=== PATIENT | male | born 1995 | race Caucasian/White ===

== ENCOUNTER 2021-10-15 17:40 | Inpatient (IN) | payer OTHER ==
[~2021-10-15] VITALS: Ht 170.2 cm; Wt 105.7 kg
--- NOTE | 2021-10-15 17:40 | NUR ---
Dr Olguin at the bedside for MSE.
[2021-10-15 18:13] LABS: HEMATOCRIT 52.6 % (36.7-47.1); MEAN CORPUSCULAR HEMOGLOBIN 27.9 uug (23.8-33.4); MEAN CORPUSCULAR VOLUME 85.5 fL (73.0-96.2); PLATELET COUNT (AUTO) 468 K/uL (152-348)
[2021-10-15 18:21] LABS: CARBON DIOXIDE 19 mmol/L (21-32); CHLORIDE 101 mmol/L (98-107); CREATININE 4.4 mg/dL (0.6-1.3); GLUCOSE 194 mg/dL (74-106); UREA NITROGEN, BLOOD 26 mg/dL (7-18)
[2021-10-15 18:23] LABS: ETHANOL < 3 MG/DL (0-0); POTASSIUM 8.3 mmol/L (3.5-5.1)
[2021-10-15] MEDS ORDERED: DEXTROSE 50% 50 ML DISP.SYRIN IV ONE (18:30)
[2021-10-15] MEDS ORDERED: SODIUM POLYSTYRENE SULFONATE 15 G/60 ML LIQUID UDC PO ONE (18:30)
[2021-10-15] MEDS ORDERED: IV NS 1000 ML 1,000 ML IV ONE (18:30)
[2021-10-15] MEDS ORDERED: SODIUM BICARBONATE 8.4% 50 MEQ/50 ML DISP.SYRIN IV ONE ×2 (18:30→18:39)
[2021-10-15] MEDS ORDERED: IV NORMAL SALINE 1000 ML BAG IV ONE (18:30)
[2021-10-15] MEDS ORDERED: CALCIUM CHLORIDE 1 GM/10 ML DISP.SYRIN IVP ONE ×2 (18:30→18:36)
[2021-10-15] MEDS ORDERED: SODIUM BICARBONATE 8.4% 100 MEQ in IV D5W 1000ML 1,000 ML IV ONE (18:30)
[2021-10-15 18:32] LABS: ACETAMINOPHEN < 2.0 ug/mL (10-30); ALANINE AMINOTRANSFERASE 188 U/L (16-63); ALKALINE PHOSPHATASE 117 U/L (50-136); ASPARTATE AMINOTRANSFERASE 1321 U/L (15-37); BILIRUBIN,DIRECT 0.2 mg/dL (0.0-0.2); BILIRUBIN,TOTAL 0.6 mg/dL (0.2-1.0); TOTAL PROTEIN, SERUM 8.3 g/dL (6.4-8.2)
[2021-10-15] MEDS ORDERED: SWABABLE VALVE TRANSFER SET EA MC ONE (18:38)
[2021-10-15] MEDS ORDERED: IV NORMAL SALINE 250 ML IV ONE (18:38)
[2021-10-15] MEDS ORDERED: IOHEXOL 300MG/ML 100 ML INFUS..BTL ONE (18:38)
[2021-10-15] MEDS ORDERED: SODIUM POLYSTYRENE SULFONATE 15 G/60 ML LIQUID UDC ONE (18:39)
[2021-10-15] MEDS ORDERED: DEXTROSE 50% 50 ML DISP.SYRIN ONE (18:39)
[2021-10-15] MEDS ORDERED: INSULIN REGULAR, HUMAN 300 UNIT/3 ML VIAL IV ONE (18:45)
[2021-10-15] MEDS ORDERED: PIPERACILLIN SODIUM/TAZOBACTAM 3.375 G in IV DEXTROSE 5% 50 ML IV ONE (18:45)
--- NOTE | 2021-10-15 18:46 | NUR ---
Pt out Of ER for Ct scan.
[2021-10-15] MEDS ORDERED: INSULIN REGULAR, HUMAN 300 UNIT/3 ML VIAL ONE (18:49)
[2021-10-15] MEDS ORDERED: PIPERACILLIN/TAZOBACTAM/D5W 50 ML IV ONE (18:57)
--- NOTE | 2021-10-15 19:08 | NUR ---
RECEIVED REPORT FROM RAYMON. PT NOTED TO BE IN BED, NO SOB OR LABORED BREATHING. AFEBRILE. A/O X4. BED IN LOWEST POSITION FOR SAFETY PRECAUTIONS. MOTHER AT BEDSIDE.
--- NOTE | 2021-10-15 20:37 | NUR ---
ASISSTED PT TO RESTROOM WITH 2 PERSON ASISST, WELL TOLERATED. ABLE TO HAVE BM.
[2021-10-15] MEDS ORDERED: ONDANSETRON 4 MG/2 ML VIAL IV PRN (22:00)
[2021-10-15] MEDS ORDERED: ACETAMINOPHEN 650 MG SUPP.RECT RC PRN (22:00)
[2021-10-15] MEDS ORDERED: HEPARIN/D5W DRIP 500 ML IV PRN (22:00)
[2021-10-15 22:05] LABS: CREATINE KINASE, TOTAL 17545 U/L (39-308)
[2021-10-15 22:32] LABS: *BILIRUBIN,URIN 1+ (NEGATIVE); *BLOOD, URINE 3+ (NEGATIVE); *CLARITY,URINE CLOUDY (CLEAR); *COLOR,URINE Brown (YELLOW); *KETONES,URINE TRACE (NEGATIVE); *UROBILINOGEN,URINE 0.2 E.U./dl (NORMAL); LEUKOCYTE ESTERASE ,URINE NEGATIVE (NEGATIVE); NITRITE, URINE NEGATIVE (NEGATIVE); PH,URINE 5.5 (5.0-8.0); UGLUCOSE TRACE (NEGATIVE)
[2021-10-15 22:40] LABS: BACTERIA,URINE NONE SEEN /HPF (NONE SEEN); RBC,URINE 20-50 /HPF (0-3); SQUAMOUS EPITHELIAL CELL,UR NONE SEEN /HPF (NONE SEEN); WBC,URINE 0-3 /HPF (0-3)
[2021-10-15] MEDS ORDERED: APIX2.5T PO (22:48)
[2021-10-15] MEDS ORDERED: ATOR20TA PO (22:48)
[2021-10-15] MEDS ORDERED: ENAL20TA18 PO (22:48)
[2021-10-15] MEDS ORDERED: VERA240C2 PO (22:48)
[2021-10-15 22:53] LABS: *AMPHETAMINE, URINE NEGATIVE (NEGATIVE); *CANNABINOID, URINE NEGATIVE (NEGATIVE); *COCCAINE, URINE NEGATIVE (NEGATIVE); *OPIATE, URINE POSITIVE (NEGATIVE); *PHENCYCLIDINE SCREEN,URINE NEGATIVE (NEGATIVE)
[2021-10-15 23:16] LABS: ABG BASE EXCESS -9.3 mmol/L; ABG HCO3 17.3 mmol/L; ABG PCO2 39.8 mmHg (35.0-45.0); ABG PH 7.255 (7.350-7.450); ABG SITE RIGHT RADIAL; ABG TOTAL HEMOGLOBIN 17.6 G/dL (13.5-18.0); COHb 0.4 % (0.5-1.5); MetHb 0.6 % (0.0-1.5); O2Hb 94.4 % (94.0-97.0); VENT MODE Nasal Cannula
--- NOTE | 2021-10-15 23:25 | NUR ---
PT RESTING COMFORTABLY IN BED, NO SOB OR LABORED BREATHING EYES CLOSED.
[2021-10-16] LABS: LIPASE 216 U/L (73-393)
--- NOTE | 2021-10-16 02:00 | NUR ---
PT RESTING IN BED, NOTED TO BE USING HIS CELL PHONE. NO SOB OR LABORED BREATHING.
[2021-10-16] MEDS ORDERED: VANCOMYCIN IV 2,000 MG in IV DEXTROSE 5% 500 ML IV ONE (02:30)
[2021-10-16] MEDS ORDERED: VANCOMYCIN 1000 MG VIAL ONE (03:29)
[2021-10-16] MEDS ORDERED: HEPARIN/D5W DRIP 500 ML ONE (03:53)
[2021-10-16] MEDS ORDERED: PIPERACILLIN/TAZO 2.25 G in IV DEXTROSE 5% 50 ML IV SCH ×2 (04:00→12:00)
[2021-10-16] MEDS ORDERED: PIPERACILLIN/TAZOBACTAM/D5W 50 ML ONE (04:27)
--- NOTE | 2021-10-16 05:42 | NUR ---
Patient is resting comfortably in bed with eyes closed.
[2021-10-16] MEDS: MORPHINE SULFATE 2 MG/1 ML DISP.SYRIN IV PRN ×3 (06:45→22:16)
[2021-10-16 06:46] LABS: MEAN CORPUSCULAR HEMOGLOBIN 27.8 uug (23.8-33.4); MEAN CORPUSCULAR VOLUME 83.9 fL (73.0-96.2); PLATELET COUNT (AUTO) 348 K/uL (152-348)
[2021-10-16] MEDS ORDERED: MORPHINE SULFATE 2 MG/1 ML DISP.SYRIN ONE ×2 (06:50→09:19)
--- NOTE | 2021-10-16 06:55 | NUR ---
GAVE REPORT TO MEHRDAD WOOD. PT NOTED TO BE IN BED, NO SOB OR LABORED BREATHING. AFEBRILE.
[2021-10-16 07:50] LABS: CREATININE 4.4 mg/dL (0.6-1.3); PHOSPHOROUS 6.3 mg/dL (2.5-4.9); POTASSIUM 5.3 mmol/L (3.5-5.1); TOTAL PROTEIN, SERUM 7.2 g/dL (6.4-8.2)
[2021-10-16] MEDS ORDERED: IV NORMAL SALINE 1000 ML BAG IV ONE (08:00)
--- NOTE | 2021-10-16 08:23 | NUR ---
PT IS RESTING IN BED COMFORTABLY . DR METCALF EVALUATED THE PT. HEPARIN INFUSION WAS STOPPED ACCORDING TO DR METCALF ORDER. DR BAUGH WAS NOTIFIED. PT CAN BE ADMITTED TO [facility] UNIT ACCORDING TO DR BAUGH ORDER.
[2021-10-16] MEDS: PANTOPRAZOLE SODIUM 40 MG VIAL IV SCH (09:08)
[2021-10-16] MEDS ORDERED: PANTOPRAZOLE SODIUM 40 MG VIAL ONE (09:18)
[2021-10-16] MEDS: LORAZEPAM 2 MG/1 ML VIAL IV PRN (11:07)
[2021-10-16] MEDS ORDERED: LORAZEPAM 2 MG/1 ML VIAL ONE (11:11)
[2021-10-16] MEDS: PIPERACILLIN SODIUM/TAZOBACTAM 3.375 G in IV DEXTROSE 5% 50 ML IV SCH ×2 (12:26→20:35)
[2021-10-16] MEDS ORDERED: PIPERACILLIN/TAZOBACTAM/D5W 50 ML IV ONE (12:42)
--- NOTE | 2021-10-16 14:45 | NUR ---
ADMITTED FROM ER A 25 YO MALE FROM HOME ALONG WITH MOTHER WITH DX OF MULTI-ORGAN FAILURE DROWSY BUT ABLE TO RESPOND TO SIMPLE QUESTIONS AT AW SHORT PERIOD OF TIME AND THEN GOES TO SLEEP. ON 3L O2 VIA NC SATURATING 93%. ROUTINE ADMISSION ASSESSMENTS INITIATED. DR BAUGH PUT ADMISSION ORDERS AND CARRIED. ST 125/MIN ON MOITOR. CLOSELY MONITOR
--- NOTE | 2021-10-16 14:58 | NUR ---
REPORT WAS GIVEN TO RN [facility]. PT WAS TRANSFERED TO ROOM #310.
[2021-10-16 16:07] VITALS: BP 131/66
[2021-10-16] MEDS: IV D5/ 0.9% NACL 1,000 ML IV PRN (16:41)
[2021-10-16 20:17] VITALS: BP 134/78
--- NOTE | 2021-10-16 22:30 | NUR ---
Pt requested to standup under supervision to relieve pressure from bed; assisted and kept safe; Sinus tachy 117 while standing up; pt denies dizziness and nausea; pt placed back safely to bed; morphine given for pain management.
[2021-10-17 00:06] VITALS: BP 132/86
[2021-10-17] MEDS: PIPERACILLIN SODIUM/TAZOBACTAM 3.375 G in IV DEXTROSE 5% 50 ML IV SCH ×3 (03:18→19:43)
[2021-10-17] MEDS: MORPHINE SULFATE 2 MG/1 ML DISP.SYRIN IV PRN ×3 (03:25→22:47)
[2021-10-17 04:37] VITALS: BP 115/73
[2021-10-17] MEDS: LORAZEPAM 2 MG/1 ML VIAL IV PRN ×2 (05:01→19:43)
[2021-10-17] MEDS: IV D5/ 0.9% NACL 1,000 ML IV PRN (05:01)
--- NOTE | 2021-10-17 06:22 | NUR ---
Pt unable to urinate; tried for an hour to use urinal; bladder scan done and showed 750 ml in bladder; in/out catheter done aseptically and was able to have 1000 ml output.; will refer to
[2021-10-17 08:00] VITALS: BP 146/68
[2021-10-17 08:14] LABS: HEMATOCRIT 40.4 % (36.7-47.1); MEAN CORPUSCULAR HEMOGLOBIN 27.3 uug (23.8-33.4); MEAN CORPUSCULAR VOLUME 83.4 fL (73.0-96.2); PLATELET COUNT (AUTO) 236 K/uL (152-348)
[2021-10-17 08:43] LABS: BILIRUBIN,DIRECT 0.4 mg/dL (0.0-0.2); BILIRUBIN,TOTAL 1.1 mg/dL (0.2-1.0); CREATININE 5.2 mg/dL (0.6-1.3); MAGNESIUM 1.9 mg/dL (1.8-2.4); PHOSPHOROUS 5.3 mg/dL (2.5-4.9); POTASSIUM 4.2 mmol/L (3.5-5.1); TOTAL PROTEIN, SERUM 6.1 g/dL (6.4-8.2); VANCOMYCIN,RANDOM 19.2 ug/mL (18.0-26.0)
[2021-10-17] MEDS: PANTOPRAZOLE SODIUM 40 MG VIAL IV SCH (08:50)
[2021-10-17] MEDS: IV 1/2NS 1000 ML 1,000 ML IV PRN ×2 (10:01→22:28)
--- NOTE | 2021-10-17 10:16 | NUR ---
RESTING IN BED WITH EYES CLOSED. ST 103/MIN ON MONITOR. NO SIGNS OF DISCOMFORT. BLAADER SCA DONE , READS 320 MLS. WILL CONTINUE TO OBSERVE
[2021-10-17] MEDS ORDERED: CETI-355 PO (10:39)
[2021-10-17] MEDS ORDERED: HYDR2TAB4 PO (10:39)
[2021-10-17] MEDS ORDERED: IBUP-1957 PO (10:39)
[2021-10-17] MEDS ORDERED: OMEP20TA5 PO (10:39)
[2021-10-17 11:32] VITALS: BP 128/69
--- NOTE | 2021-10-17 13:17 | NUR ---
UP ON THE SIDE OF BED EATING LUNCH, FAIRLY TOLERATED. NO SIGNS OF ASPIRATION OR DIFFICULTY SWALLOWING C/O BEARABLE PAIN RIGHT ARM 4/10 POSITION FOR COMFORT. AWAITING PHYSICAL THERAPY FOR EVAL. ST ON MONITOR 107/MIN CONTINUE WITH [facility] MONITORING
--- NOTE | 2021-10-17 15:00 | NUR ---
PATIENT TRYING TO VOID BUT UNABLE TO GO, BLADDER SCAN DONE [address] BAUGH NOTIFIED WITH ORDER TO INSERT A SÁNCHEZ
--- NOTE | 2021-10-17 15:43 | NUR ---
SÁNCHEZ CATH FR 16 INSERTED WITHOUT DIFFICULTY AND OBTAINED MORE THAN 1000 MLS CLEAR URINE.
[2021-10-17 16:00] VITALS: BP 122/81
--- NOTE | 2021-10-17 18:24 | NUR ---
MIDLINE INSERTED LEFT FOREARM, CONTINUE WITH PAIN MANAGEMENT AND [facility] OBSERVATION. SR ON MONITOR
[2021-10-17 20:25] VITALS: BP 138/69
[2021-10-18] MEDS ORDERED: BENZOCAINE/MENTH/CETYLPYRD LOZENGE MM PRN
[2021-10-18 00:19] VITALS: BP 115/66
[2021-10-18] MEDS: MORPHINE SULFATE 2 MG/1 ML DISP.SYRIN IV PRN ×5 (02:15→14:13)
[2021-10-18 04:26] VITALS: BP 102/63
[2021-10-18] MEDS: PIPERACILLIN SODIUM/TAZOBACTAM 3.375 G in IV DEXTROSE 5% 50 ML IV SCH (04:29)
[2021-10-18] MEDS: PANTOPRAZOLE SODIUM 40 MG TABLET.DR PO SCH (05:42)
[2021-10-18] MEDS: IV 1/2NS 1000 ML 1,000 ML IV PRN ×2 (05:48→14:14)
[2021-10-18 06:06] LABS: HEMATOCRIT 35.7 % (36.7-47.1); MEAN CORPUSCULAR HEMOGLOBIN 26.9 uug (23.8-33.4); MEAN CORPUSCULAR VOLUME 82.3 fL (73.0-96.2); PLATELET COUNT (AUTO) 225 K/uL (152-348)
[2021-10-18 06:31] LABS: CREATININE 5.6 mg/dL (0.6-1.3); PHOSPHOROUS 4.3 mg/dL (2.5-4.9); POTASSIUM 3.9 mmol/L (3.5-5.1); VANCOMYCIN,RANDOM 13.9 ug/mL (18.0-26.0)
--- NOTE | 2021-10-18 07:30 | NUR ---
IN RESTING COMFORTABLY AWAKE ALERT AND VERBALLY RESPONSIVE, C/O BEARABLE PAIN RIGHT ARM, NOTED LESS SWOLLEN WITH GOOD PALPABLE PULSE. AWAITING PT/OT FOR EVAL. CONTINUE WITH PAIN MANAGEMENT. NO SIGNS OF ACUTE DISTRESS. DR BAUGH IN MADE AWARE OF ABNORMAL LABS. WILL CALL FOR NEPHRO CONSULT. SR ON MONITOR AFEBRILE
[2021-10-18] MEDS ORDERED: VANCOMYCIN IV 1,250 MG in IV DEXTROSE 5% 250 ML IV ONE (08:00)
[2021-10-18 08:07] VITALS: BP 117/72
--- NOTE | 2021-10-18 09:20 | NUR ---
PHYSICAL THERAPY INITIATED AT BEDSIDE SEE NOTES
[2021-10-18] MEDS ORDERED: PIPERACILLIN/TAZO 2.25 G in IV DEXTROSE 5% 50 ML IV SCH (12:00)
[2021-10-18 12:10] VITALS: BP 113/79
--- NOTE | 2021-10-18 14:10 | NUR ---
SEEN BY DR COOK FOR KIDNEY FOLLOW-UP KIDNEY US ORDERED. CONTINUE WITH PAIN MANAGEMENT AND IV ANTIBIOTIC
[2021-10-18] MEDS: PIPERACILLIN SODIUM/TAZOBACTAM 3.375 G in IV DEXTROSE 5% 100 ML IV SCH ×2 (14:17→21:07)
[2021-10-18 16:14] VITALS: BP 109/73
--- NOTE | 2021-10-18 18:18 | NUR ---
There is a stat order for ultrasound kidneys at 14:04. The tech was called in at 16:31. Unable to send the images to PAC as the system is failed. IT is informed but still haven't got any reply yet.
--- NOTE | 2021-10-18 19:16 | NUR ---
Received pt sitting up in bed. AO X 4. On room air saturating at 95%. Assisted pt to bedside commode. Right arm swollen, weaker compared to the left side. ROSITA midline intact and patent, running 0.45% NS at 125 mls. F/C intact, draining. No signs of acute distress noted. No complaints at this time. Call lights and belongings within reach. Safety measures initiated.
[2021-10-18 20:12] VITALS: BP 126/80
[2021-10-18] MEDS: LORAZEPAM 2 MG/1 ML VIAL IV PRN (21:25)
[2021-10-19 00:09] VITALS: BP 132/81
[2021-10-19] MEDS: MORPHINE SULFATE 2 MG/1 ML DISP.SYRIN IV PRN ×6 (00:30→21:33)
[2021-10-19 04:12] VITALS: BP 128/82
[2021-10-19] MEDS: IV 1/2NS 1000 ML 1,000 ML IV PRN (05:16)
[2021-10-19] MEDS: PIPERACILLIN SODIUM/TAZOBACTAM 3.375 G in IV DEXTROSE 5% 100 ML IV SCH ×3 (05:18→21:08)
[2021-10-19] MEDS: PANTOPRAZOLE SODIUM 40 MG TABLET.DR PO SCH (06:16)
--- NOTE | 2021-10-19 07:02 | NUR ---
Slept intermittently through the night. AO x 4. Anxious. Ativan given for anxiety, effective. Pt c/o pain on R ARM, swollen, kept elevated. Morphine given for 9/10 pain. ABX given piperacillin, tolerated. ROSITA midline intact. F/C intact, draining well. Clear, yellow and no foul odor urine. Needs have been met. Call lights within reach. Safety measures maintained.
[2021-10-19 08:00] VITALS: BP 119/76
[2021-10-19 09:14] LABS: HEMATOCRIT 36.3 % (36.7-47.1); MEAN CORPUSCULAR HEMOGLOBIN 27.6 uug (23.8-33.4); MEAN CORPUSCULAR VOLUME 82.7 fL (73.0-96.2); PLATELET COUNT (AUTO) 245 K/uL (152-348)
[2021-10-19 09:21] LABS: CREATININE 5.4 mg/dL (0.6-1.3); POTASSIUM 3.6 mmol/L (3.5-5.1)
[2021-10-19 09:36] LABS: BILIRUBIN,TOTAL 0.8 mg/dL (0.2-1.0); TOTAL PROTEIN, SERUM 6.4 g/dL (6.4-8.2)
--- NOTE | 2021-10-19 09:54 | NUR ---
Received pt. Pt is a/o x 4, pt complains of back and right arm pain. US of right arm was negative for thrombus, edema present. Pt is ambulatory to bedside commode with PT, mclean catheter draining urine. Vitals: BP 119/76, HR 85, saturating 98% on 1 L NC. comfort measures provided, administered prn morphine, call light within reach. Will continue to monitor pt.
[2021-10-19 12:00] VITALS: BP 125/82
--- NOTE | 2021-10-19 13:42 | NUR ---
Clinical Social Work Note YESSY consult was requested due to patient's overdose. YESSY met with 25 year male who is alert and oriented x4. Patient presents with a tense mood and and congruent affect. SW asked patient about his substance use with Dilaudid. Patient denied hx with substance use. Patient stated that he has been prescribed Dilaudid for back pain and uses it about once a month. Patient stated that this time he overused his medications of Dilaudid and percocet.Patient stated that he normally takes the Dilaudid once every month but this time he could not handle pain. Per patient, in addition to the Dilaudid he took one Percocet and stated that was his first time taking it. Patient stated that he does not need outpatient treatment and when he goes home he is going to ask mother to monitor his use. Since patient has been using narcotic, he was given referrals for medication-assisted treatment.
[2021-10-19] MEDS: LORAZEPAM 2 MG/1 ML VIAL IV PRN (14:27)
--- NOTE | 2021-10-19 16:22 | NUR ---
SW Family Contact SW spoke with patient's mother, Micah Garcia [phone], to discuss discharge plan. SW asked Ms. Garcia about how are they going to help patient with dilaudid. Ms. Garcia stated that she has taken the medication and is going to be monitoring the medication. Ms. Garcia stated that patient is agreeable with plan.
[2021-10-19 16:30] VITALS: BP 110/63
[2021-10-19 20:10] VITALS: BP 140/57
[2021-10-20 00:02] VITALS: BP 128/80
[2021-10-20] MEDS: HYDROCODONE/APAP 5-325MG TABLET PO PRN ×2 (00:30→15:44)
[2021-10-20] MEDS: IV NS 1000 ML 1,000 ML IV PRN ×2 (01:48→13:47)
[2021-10-20 04:09] VITALS: BP 118/72
[2021-10-20] MEDS: PIPERACILLIN SODIUM/TAZOBACTAM 3.375 G in IV DEXTROSE 5% 100 ML IV SCH ×3 (05:29→20:38)
[2021-10-20] MEDS: MORPHINE SULFATE 2 MG/1 ML DISP.SYRIN IV PRN ×2 (05:29→09:56)
[2021-10-20] MEDS: PANTOPRAZOLE SODIUM 40 MG TABLET.DR PO SCH (06:12)
--- NOTE | 2021-10-20 06:24 | NUR ---
Received pt awake on bed upon initial rounds. Alert and oriented x4, able to make needs known. Slept intermittently throughout the night. Continues to complain for pain jalyn on R arm. PRN medications given. Assisted to bedside commode, BM x2. MRI checklist done and countersigned by Dustin CRONIN d/t pt unable to sign with R arm pain/weakness. All needs attended. Call light placed within reach. Frequent visual checks done.
[2021-10-20 06:50] LABS: HEMATOCRIT 37.3 % (36.7-47.1); MEAN CORPUSCULAR HEMOGLOBIN 27.5 uug (23.8-33.4); MEAN CORPUSCULAR VOLUME 82.9 fL (73.0-96.2); PLATELET COUNT (AUTO) 286 K/uL (152-348)
[2021-10-20 07:12] LABS: BILIRUBIN,TOTAL 0.7 mg/dL (0.2-1.0); MAGNESIUM 2.2 mg/dL (1.8-2.4); PHOSPHOROUS 4.5 mg/dL (2.5-4.9); POTASSIUM 3.5 mmol/L (3.5-5.1); TOTAL PROTEIN, SERUM 6.5 g/dL (6.4-8.2)
--- NOTE | 2021-10-20 07:26 | NUR ---
TEXT DR. STARR FOR MRI APPROVAL.
--- NOTE | 2021-10-20 07:33 | NUR ---
MRI APPROVED, MRI NOTIFIED VIA TEXT. SOON SUBSTATION DESIGN DRAFTSPERSON RESPONSE, I WILL CALL THE FLOOR TO ARRANGE FOR TRANSPORTATION.
--- NOTE | 2021-10-20 10:03 | NUR ---
Patient complained of pain on right arm, 06/14. Morphine IV PRN given. BP 125/84. HR 85. Will continue to monitor.
[2021-10-20] MEDS ORDERED: HYDROMORPHONE 1 MG/1 ML DISP.SYRIN IV ONE (11:30)
[2021-10-20 11:56] VITALS: BP 126/70
--- NOTE | 2021-10-20 12:12 | NUR ---
Patient transported to [facility] for MRI via ambulance transport. Patient AOx4. On room air. No signs of acute distress.
--- NOTE | 2021-10-20 15:50 | NUR ---
Patient complained of [place] pain, 06/14. [place] PRN PO as ordered for pain. Will continue to monitor.
[2021-10-20 15:57] VITALS: BP 123/75
--- NOTE | 2021-10-20 19:30 | NUR ---
Patient is in a cooperative mood. C/O severe pain to his right shoulder and arm as well as left shoulder. Right arm elevated with pillows. Tolerates well. Patient is able to reposition in bed with minimal assistance of this RN. On telemetry, she is NSR with HR in the 80's. Denies any SOB or chest pain. Midline to left upper arm is intact and patent.
[2021-10-20] MEDS: HYDROMORPHONE HCL 2 MG TABLET PO PRN (20:02)
[2021-10-20 20:30] VITALS: BP 111/70
[2021-10-20] MEDS: LORAZEPAM 2 MG/1 ML VIAL IV PRN (23:40)
[2021-10-21 00:14] VITALS: BP 118/78
[2021-10-21] MEDS: IV NS 1000 ML 1,000 ML IV PRN ×2 (04:05→23:09)
[2021-10-21 04:32] VITALS: BP 119/74
[2021-10-21] MEDS: MORPHINE SULFATE 2 MG/1 ML DISP.SYRIN IV PRN ×3 (05:05→19:01)
[2021-10-21] MEDS: PIPERACILLIN SODIUM/TAZOBACTAM 3.375 G in IV DEXTROSE 5% 100 ML IV SCH (05:05)
--- NOTE | 2021-10-21 05:23 | NUR ---
Patient woke up 2 times this shift claiming he had a bad dream and had increase anxiety. Unable to use non pharmacological approaches with patient on the first episode. Patient requested Ativan, Ativan provided and effective. 2 hours later patient had 2nd episode, able to use medication, deep breathing and soothing music to help patient with anxiety. patient slept well for remainder of shift. Patient very anxious about NPO status, risk and benefits explained. Per tech, CTA will be done first thing this am.
[2021-10-21] MEDS: PANTOPRAZOLE SODIUM 40 MG TABLET.DR PO SCH (06:10)
[2021-10-21 06:31] LABS: HEMATOCRIT 36.7 % (36.7-47.1); MEAN CORPUSCULAR HEMOGLOBIN 27.2 uug (23.8-33.4); MEAN CORPUSCULAR VOLUME 82.8 fL (73.0-96.2); PLATELET COUNT (AUTO) 284 K/uL (152-348)
[2021-10-21 06:53] LABS: CREATININE 4.9 mg/dL (0.6-1.3); MAGNESIUM 2.1 mg/dL (1.8-2.4); PHOSPHOROUS 4.5 mg/dL (2.5-4.9); POTASSIUM 3.7 mmol/L (3.5-5.1)
[2021-10-21] MEDS: NEPRO (VANILLA) 237 ML CAN PO SCH (08:18)
--- NOTE | 2021-10-21 08:30 | NUR ---
received a call from radiology stating they have concerns regarding completing the CT angiogram due to abnormal creatinine level, per Dr. Terrell to have Dr. Page call him. Kelly also made aware of delay for CTA phone number or radiology and Dr. Terrell also forwarded to Kelly.
--- NOTE | 2021-10-21 09:25 | NUR ---
patient continuously asking for water and food, explained to patient that he is still NPO until CTA is completed.
[2021-10-21] MEDS ORDERED: IV NORMAL SALINE 250 ML IV ONE (09:41)
[2021-10-21] MEDS ORDERED: IOHEXOL 350 100 ML INFUS..BTL ONE (09:41)
[2021-10-21] MEDS ORDERED: SWABABLE VALVE TRANSFER SET EA MC ONE (09:41)
[2021-10-21 11:56] VITALS: BP 105/73
--- NOTE | 2021-10-21 12:18 | NUR ---
patient taken downstairs for CTA
[2021-10-21 16:03] VITALS: BP 118/74
[2021-10-21] MEDS: HYDROMORPHONE HCL 2 MG TABLET PO PRN (17:56)
[2021-10-21] MEDS ORDERED: ACETAMINOPHEN 325 MG TABLET PO PRN (19:00)
--- NOTE | 2021-10-21 19:55 | NUR ---
Patient in bed AALOx4.No s/s of distress noted. On Ra.Denies pain at this time.Midline in left upper arm patent and intact with IVF running at 175 ml/hr.F/c draining with yellow urine output. No hematuria.Call light with in reach.Will continue to monitor.
[2021-10-21 20:38] VITALS: BP 124/76
[2021-10-21] MEDS: LORAZEPAM 2 MG/1 ML VIAL IV PRN (23:52)
[2021-10-22] MEDS: HYDROMORPHONE HCL 2 MG TABLET PO PRN ×3 (03:11→23:10)
[2021-10-22 04:46] VITALS: BP 121/80
[2021-10-22] MEDS: MORPHINE SULFATE 2 MG/1 ML DISP.SYRIN IV PRN ×3 (05:15→17:37)
[2021-10-22] MEDS: IV NS 1000 ML 1,000 ML IV PRN ×4 (05:20→23:27)
[2021-10-22] MEDS: PANTOPRAZOLE SODIUM 40 MG TABLET.DR PO SCH (06:01)
[2021-10-22 06:13] LABS: HEMATOCRIT 35.1 % (36.7-47.1); MEAN CORPUSCULAR HEMOGLOBIN 27.3 uug (23.8-33.4); PLATELET COUNT (AUTO) 287 K/uL (152-348)
[2021-10-22 06:48] LABS: CREATININE 4.3 mg/dL (0.6-1.3); MAGNESIUM 2.1 mg/dL (1.8-2.4); PHOSPHOROUS 4.4 mg/dL (2.5-4.9); POTASSIUM 3.6 mmol/L (3.5-5.1)
[2021-10-22] MEDS: NEPRO (VANILLA) 237 ML CAN PO SCH (08:28)
[2021-10-22 11:27] VITALS: BP 125/77
--- NOTE | 2021-10-22 15:38 | NUR ---
Clinical Social Work Note YESSY met with patient and mother per her request. Mother explained to SW about her concern of patient's arm not making any progress and that she wanted to request transfer to a different hospital. Per mother, patient can go to [facility] and [place]. Patient stated that he wanted to be transferred due to not receiving good care here. Per patient, he was left in the bathroom for a long period of time before having someone assist with cleaning and that staff does not give him his medication in a timely manner. YESSY spoke with MEHRDAD Dutton, who provided an update on patient's arm. SW explained to mother and patient about information from RN. SW explained that CT scan did not show any abnormalities, patient does not fit for MRI scan, and we are pending for consult from Dr. Fernandez. Mother and patient stated that they understood and would like the transfer. SW explained that CM will start with the process of transfer and mother will be updated. YESSY stated that the transfer could take a few days depended on bed availability. Plan: YESSY will follow up with CM to begin process for transfer.
[2021-10-22 15:54] VITALS: BP 126/73
[2021-10-22] MEDS: HYDROCODONE/APAP 5-325MG TABLET PO PRN ×2 (16:28→22:21)
[2021-10-22 20:00] VITALS: BP 153/85
[2021-10-23] MEDS: MORPHINE SULFATE 2 MG/1 ML DISP.SYRIN IV PRN ×3 (01:39→21:45)
[2021-10-23] MEDS: LORAZEPAM 2 MG/1 ML VIAL IV PRN (02:16)
[2021-10-23 04:00] VITALS: BP 135/76
[2021-10-23] MEDS: IV NS 1000 ML 1,000 ML IV PRN ×3 (05:21→20:49)
[2021-10-23] MEDS: PANTOPRAZOLE SODIUM 40 MG TABLET.DR PO SCH (06:03)
[2021-10-23] MEDS: HYDROMORPHONE HCL 2 MG TABLET PO PRN ×2 (08:51→20:48)
[2021-10-23] MEDS: NEPRO (VANILLA) 237 ML CAN PO SCH (09:01)
--- NOTE | 2021-10-23 10:39 | NUR ---
Pt is a/o x 4, stated he was in pain, administered dilaudid. I explained that this medication is every 8 hours as needed but to let me know if he still is in pain afterwards. Pt has morphine for break though pain as needed every 6 hours. Pt stated he has difficulty eating on hisown. I helped with breakfast and opened containers, fed pt things that he was unable to eat on his own. Comfort measures provided, call light within reach, will continue to monitor pt.
[2021-10-23 10:59] LABS: HEMATOCRIT 35.9 % (36.7-47.1); MEAN CORPUSCULAR HEMOGLOBIN 27.5 uug (23.8-33.4); MEAN CORPUSCULAR VOLUME 84.4 fL (73.0-96.2); PLATELET COUNT (AUTO) 285 K/uL (152-348)
[2021-10-23 11:08] VITALS: BP 131/78
[2021-10-23 11:09] LABS: CREATININE 3.7 mg/dL (0.6-1.3); MAGNESIUM 1.8 mg/dL (1.8-2.4); PHOSPHOROUS 4.1 mg/dL (2.5-4.9); POTASSIUM 3.6 mmol/L (3.5-5.1)
[2021-10-23 15:10] VITALS: BP 102/71
[2021-10-23 20:10] VITALS: BP 124/74
[2021-10-24] MEDS: HYDROMORPHONE HCL 2 MG TABLET PO PRN ×2 (03:15→14:47)
[2021-10-24] MEDS: IV NS 1000 ML 1,000 ML IV PRN ×4 (03:18→22:32)
[2021-10-24] MEDS: LORAZEPAM 2 MG/1 ML VIAL IV PRN (03:29)
[2021-10-24 04:00] VITALS: BP 130/77
[2021-10-24] MEDS: MORPHINE SULFATE 2 MG/1 ML DISP.SYRIN IV PRN ×3 (05:55→22:02)
[2021-10-24] MEDS: PANTOPRAZOLE SODIUM 40 MG TABLET.DR PO SCH (06:00)
--- NOTE | 2021-10-24 06:31 | NUR ---
AO x 4. On room air saturating 97%. Dilaudid given for 10/10 arm pain. Morphine IVP given for breakthrough pain, multiple times. Pt stated "having an anxiety attack, feels very anxious". Administered Ativan IVP for anxiety. Pt slept for a few hours after, medication effective. ROSITA midline intact and running NS at 175 mls/hr. F/C intact, draining well. Clear yellow urine. Call lights within reach. Safety measures maintained. Will endorse to am shift.
[2021-10-24 06:34] LABS: HEMATOCRIT 34.8 % (36.7-47.1); MEAN CORPUSCULAR HEMOGLOBIN 27.6 uug (23.8-33.4); MEAN CORPUSCULAR VOLUME 83.1 fL (73.0-96.2); PLATELET COUNT (AUTO) 302 K/uL (152-348)
[2021-10-24 06:42] LABS: CREATININE 3.2 mg/dL (0.6-1.3); MAGNESIUM 1.9 mg/dL (1.8-2.4); PHOSPHOROUS 4.8 mg/dL (2.5-4.9); POTASSIUM 3.6 mmol/L (3.5-5.1)
[2021-10-24 08:25] VITALS: BP 126/77
[2021-10-24] MEDS: NEPRO (VANILLA) 237 ML CAN PO SCH (08:28)
--- NOTE | 2021-10-24 09:43 | NUR ---
Pt is awake in bed, continue to complain of right extremity pain. Plan is pending nephrology clearance for discharge. Comfort measures provided, call light within reach.
[2021-10-24] MEDS: HYDROCODONE/APAP 5-325MG TABLET PO PRN (10:42)
[2021-10-24 12:00] VITALS: BP 142/85
[2021-10-24 16:00] VITALS: BP 127/84
[2021-10-24 20:16] VITALS: BP 115/76
[2021-10-25] MEDS: HYDROMORPHONE HCL 2 MG TABLET PO PRN (02:01)
[2021-10-25] MEDS: LORAZEPAM 2 MG/1 ML VIAL IV PRN (02:36)
[2021-10-25] MEDS: MORPHINE SULFATE 2 MG/1 ML DISP.SYRIN IV PRN (04:11)
[2021-10-25] MEDS: IV NS 1000 ML 1,000 ML IV PRN ×2 (04:20→10:21)
[2021-10-25 04:21] VITALS: BP 125/72
--- NOTE | 2021-10-25 05:55 | NUR ---
Patient slept intermittently through the night. Pt AO x 4. Continues to complain about pain on R shoulder/ arm. Dilaudid PO given. Morphine 0.5 mg IVP given for breakthrough pain. Ativan was given for anxiety, effective. ROSITA midline intact and running NS at 175 mls/hr. F/C intact and patent. Great urine output, clear yellow and no foul smelling. Call lights within reach. Safety measures maintained. Will endorse to am shift.
[2021-10-25] MEDS: PANTOPRAZOLE SODIUM 40 MG TABLET.DR PO SCH (06:09)
[2021-10-25 06:37] LABS: CREATININE 2.7 mg/dL (0.6-1.3); HEMATOCRIT 33.9 % (36.7-47.1); MAGNESIUM 1.8 mg/dL (1.8-2.4); MEAN CORPUSCULAR HEMOGLOBIN 27.5 uug (23.8-33.4); PHOSPHOROUS 4.7 mg/dL (2.5-4.9); PLATELET COUNT (AUTO) 288 K/uL (152-348); POTASSIUM 3.7 mmol/L (3.5-5.1)
[2021-10-25] MEDS: NEPRO (VANILLA) 237 ML CAN PO SCH (08:04)
[2021-10-25 11:25] VITALS: BP 150/89
--- NOTE | 2021-10-25 12:45 | NUR ---
dc folly catheter per md orders
--- NOTE | 2021-10-25 13:24 | NUR ---
dc orders received noted and carried out.dc instruction and education given to the pt .dc f/c and midline per md orders,pt said he will follow up with his pcp in three days ,pt left the facility via private car in stable condition
== END 2021-10-25 13:15 | disposition home or self-care (01) | DRG 917 ==
LOC: ER 17:40 → TRANSITION 10-16 01:59 → TELE-TD3 10-16 14:24 → TELE3 10-18 09:14 → MEDSURG3 10-21 08:25
PROVIDERS: ADMIT Internal Medicine; ATTEND Registered Nurse
PROC: 05H633Z Insertion of Infusion Device into Left Subclavian Vein, Percutaneous Approach (ICD-10-PCS; principal; 2021-10-17)
PROC: B547ZZA Ultrasonography of Left Subclavian Vein, Guidance (ICD-10-PCS; 2021-10-17)
DX: T40.2X1A Poisoning by other opioids, accidental (unintentional), initial encounter (principal); A41.9 Sepsis, unspecified organism; J96.01 Acute respiratory failure with hypoxia; G92.8 Other toxic encephalopathy; N17.0 Acute kidney failure with tubular necrosis; J69.0 Pneumonitis due to inhalation of food and vomit; I21.A1 Myocardial infarction type 2; D68.59 Other primary thrombophilia; E87.2 Acidosis; I13.2 Hypertensive heart and chronic kidney disease with heart failure and with stage 5 chronic kidney disease, or end stage renal disease; N18.5 Chronic kidney disease, stage 5; F11.20 Opioid dependence, uncomplicated; E87.5 Hyperkalemia; E78.5 Hyperlipidemia, unspecified; Z99.3 Dependence on wheelchair; Z20.822 Contact with and (suspected) exposure to COVID-19; Z74.09 Other reduced mobility; R74.01 Elevation of levels of liver transaminase levels; W19.XXXA Unspecified fall, initial encounter; Y93.9 Activity, unspecified; F32.A Depression, unspecified; N20.0 Calculus of kidney; G89.4 Chronic pain syndrome; V89.2XXS Person injured in unspecified motor-vehicle accident, traffic, sequela; R53.1 Weakness; E66.9 Obesity, unspecified; T79.A Traumatic compartment syndrome; M19.92 Post-traumatic osteoarthritis, unspecified site; M25.511 Pain in right shoulder; M79.89 Other specified soft tissue disorders; T79.6XXA Traumatic ischemia of muscle, initial encounter; Y92.019 Unspecified place in single-family (private) house as the place of occurrence of the external cause; Z68.36 Body mass index [BMI] 36.0-36.9, adult; I50.9 Heart failure, unspecified
CPT/HCPCS: 36415; 36600; 70030-TC; 70450; 71045; 71101; 71250; 72125; 73030; 73060; 73090; 73130; 76770; 83605; 83690; 83735; 84100; 84132; 85025; 85610; 85730; 87040; 93005; 93307; 97161; A4663; C1758; C9113; G0378; G0480; J1170; J1644; J1815; J2060; J2270; J2543; J3370; J3490; J7030; J7042; J7050; J7060; J7070; Q9967